=== PATIENT | male | born 1985 | race Caucasian/White ===

== ENCOUNTER 2017-02-23 18:25 | Emergency (ER) | payer OTHER ==
[2017-02-23 18:41] VITALS: BP 134/74
[2017-02-23] MEDS ORDERED: Lidocaine 2% Viscous Solution 15 ML Cup PO ONE (18:45)
[2017-02-23] MEDS ORDERED: Benzocaine 20% Topical Spray UD MUCMEM ONE (18:45)
--- NOTE | 2017-02-23 18:49 | EDM.PDOC ---
ED HPI GENERAL MEDICAL PROBLEM - General Chief Complaint: General Stated Complaint: TOOTH PAIN Time Seen by Provider: 02/23/17 18:45 Source of Information: Reports: Patient History Limitations: Reports: No Limitations - History of Present Illness INITIAL COMMENTS - FREE TEXT/NARRATIVE: HISTORY AND PHYSICAL: []31-year-old male with male presents with pain to his tooth History of Present Illness: [] 1-1/2 days patient has had pain to tooth #32. He has used a whole tube of over the counter Orajel without relief Review of Systems: As per history of present illness and below otherwise all systems reviewed and negative. Past medical history: As per history of present illness and as reviewed below otherwise noncontributory. Surgical history: As per history of present illness and as reviewed below otherwise noncontributory. Social history: No reported history of drug or alcohol abuse. Family history: As per history of present illness and as reviewed below otherwise noncontributory. Physical exam: Alert and oriented male looks to be mildly uncomfortable. answers questions in full sentences. No shortness of breath HEENT: Atraumatic, normocehpalic, pupils reactive, negative for conjunctival pallor or scleral icterus, mucous membranes moist, throat clear, neck supple, nontender, trachea midline. Gumline around tooth #32 is erythematous small portion of the tooth is visible. Lungs: Clear to auscultation, chest non tender. Heart: S1S2, regular, Abdomen: Soft, nondistended, nontender. Pelvis: Deferred Genitourinary: Deferred. Rectal: Deferred Extremities: Atraumatic, negative for cords or calf pain. Neurovascular unremarkable. Neuro: Awake, alert, oriented. Cranial nerves II through XII unremarkable. Cerebellum unremarkable. Motor and sensory unremarkable throughout. Exam nonfocal. Diagnostics: [] Therapeutics: [Dental balls] Impression: [Holden tooth erupting] Plan: [Home Dental balls as prescribed Follow-up with your personal dentist] Definitive disposition and diagnosis as appropriate pending reevaluation and review of above. Onset: Sudden Duration: Day(s): (1.5) Right Oral/Mouth Pain Score (Numeric/FACES): 5 - Related Data Allergies Allergy/AdvReac Type Severity Reaction Status Date / Time No Known Allergies Allergy Verified 02/23/17 18:42 Home Meds: Home Meds . [No Known Home Meds] 02/23/17 [History] Past Medical History HEENT History: Reports: None Cardiovascular History: Reports: None Respiratory History: Reports: None Gastrointestinal History: Reports: None Genitourinary History: Reports: None Neurological History: Reports: None Psychiatric History: Reports: None Endocrine/Metabolic History: Reports: None Hematologic History: Reports: None Immunologic History: Reports: None Oncologic (Cancer) History: Reports: None Dermatologic History: Reports: None - Past Surgical History Head Surgeries/Procedures: Reports: None HEENT Surgical History: Reports: None Cardiovascular Surgical History: Reports: None Respiratory Surgical History: Reports: None GI Surgical History: Reports: None Male Surgical History: Reports: None Musculoskeletal Surgical History: Reports: Arthroscopic Procedure, Shoulder Surgery Oncologic Surgical History: Reports: None ED ROS GENERAL - Review of Systems Review Of Systems: ROS reveals no pertinent complaints other than HPI. ED EXAM, GENERAL - Physical Exam Exam: See Below (see dictation) Course - Vital Signs Last Recorded V/S: Last Vital Signs Temp 36.4 C 02/23/17 18:40 Pulse 80 02/23/17 18:40 Resp 16 02/23/17 18:40 BP 134/74 02/23/17 18:40 Pulse Ox 98 02/23/17 18:40 Departure - Departure Time of Disposition: 18:48 Disposition: Home, Self-Care 01 Condition: Good Clinical Impression: Tooth pain - Discharge Information Forms: ED Department Discharge Additional Instructions: The following information is given to patients seen in the emergency department who are being discharged to home. This information is to outline your options for follow-up care. We provide all patients seen in our emergency department with a follow-up referral. The need for follow-up, as well as the timing and circumstances, are variable depending upon the specifics of your emergency department visit. If you don't have a primary care physician on staff, we will provide you with a referral. We always advise you to contact your personal physician following an emergency department visit to inform them of the circumstance of the visit and for follow-up with them and/or the need for any referrals to a consulting specialist. The emergency department will also refer you to a specialist when appropriate. This referral assures that you have the opportunity for followup care with a specialist. All of these measure are taken in an effort to provide you with optimal care, which includes your followup. Under all circumstances we always encourage you to contact your private physician who remains a resource for coordinating your care. When calling for followup care, please make the office aware that this follow-up is from your recent emergency room visit. If for any reason you are refused follow-up, please contact the [facility] emergency department at and asked to speak to the emergency department charge nurse.
== END 2017-02-23 19:04 | disposition home or self-care (01) ==
LOC: MW.ED 18:25
DX: K08.89 Other specified disorders of teeth and supporting structures (principal); Z98.890 Other specified postprocedural states
CPT/HCPCS: 99282; A9270

== ENCOUNTER 2021-02-17 03:14 | Emergency (ER) | payer OTHER ==
--- NOTE | 2021-02-17 03:30 | EDM.PDOC ---
ED HPI GENERAL MEDICAL PROBLEM - General Chief Complaint: General Stated Complaint: MEDICAL CLEARANCE Time Seen by Provider: 02/17/21 03:17 Source of Information: Reports: Patient History Limitations: Reports: No Limitations - History of Present Illness INITIAL COMMENTS - FREE TEXT/NARRATIVE: Patient is a 35-year-old male who presents for medical clearance. Patient was pulled over by police and brought in for medical clearance. Patient states he has no medical complaints does not want to be seen. - Related Data Allergies Allergy/AdvReac Type Severity Reaction Status Date / Time No Known Allergies Allergy Verified 02/23/17 18:42 Home Meds: Home Meds . [No Known Home Meds] 02/23/17 [History] Past Medical History HEENT History: Reports: None Cardiovascular History: Reports: None Respiratory History: Reports: None Gastrointestinal History: Reports: None Genitourinary History: Reports: None Neurological History: Reports: None Psychiatric History: Reports: None Endocrine/Metabolic History: Reports: None Hematologic History: Reports: None Immunologic History: Reports: None Oncologic (Cancer) History: Reports: None Dermatologic History: Reports: None - Past Surgical History Head Surgeries/Procedures: Reports: None HEENT Surgical History: Reports: None Cardiovascular Surgical History: Reports: None Respiratory Surgical History: Reports: None GI Surgical History: Reports: None Male Surgical History: Reports: None Musculoskeletal Surgical History: Reports: Arthroscopic Procedure, Shoulder Surgery Oncologic Surgical History: Reports: None Social & Family History - Caffeine Use Caffeine Use: Reports: None ED ROS GENERAL - Review of Systems Review Of Systems: See Below Constitutional: Reports: No Symptoms HEENT: Reports: No Symptoms Respiratory: Reports: No Symptoms Cardiovascular: Reports: No Symptoms Endocrine: Reports: No Symptoms GI/Abdominal: Reports: No Symptoms : Reports: No Symptoms Musculoskeletal: Reports: No Symptoms Skin: Reports: No Symptoms Neurological: Reports: No Symptoms Psychiatric: Reports: No Symptoms Hematologic/Lymphatic: Reports: No Symptoms Immunologic: Reports: No Symptoms ED EXAM, GENERAL - Physical Exam Exam: See Below Exam Limited By: No Limitations General Appearance: Alert, WD/WN, No Apparent Distress Respiratory/Chest: No Respiratory Distress, Lungs Clear, Normal Breath Sounds Cardiovascular: Normal Peripheral Pulses, Regular Rate, Rhythm GI/Abdominal: Normal Bowel Sounds Extremities: Normal Inspection, Normal Range of Motion Neurological: Alert, Oriented, Normal Cognition, Normal Gait Departure - Departure Time of Disposition: 03:29 Disposition: Home, Self-Care 01 Condition: Good Clinical Impression: Medical clearance for incarceration - Discharge Information *PRESCRIPTION DRUG MONITORING PROGRAM REVIEWED*: Not Applicable *COPY OF PRESCRIPTION DRUG MONITORING REPORT IN PATIENT NA: Not Applicable Instructions: Medical Screening Exam Referrals: PCP,None [Primary Care Provider] - Additional Instructions: The following information is given to patients seen in the emergency department who are being discharged to home. This information is to outline your options for follow-up care. We provide all patients seen in our emergency department with a follow-up referral. The need for follow-up, as well as the timing and circumstances, are variable depending upon the specifics of your emergency department visit. If you don't have a primary care physician on staff, we will provide you with a referral. We always advise you to contact your personal physician following an emergency department visit to inform them of the circumstance of the visit and for follow-up with them and/or the need for any referrals to a consulting specialist. The emergency department will also refer you to a specialist when appropriate. This referral assures that you have the opportunity for follow-up care with a specialist. All of these measure are taken in an effort to provide you with optimal care, which includes your follow-up. Under all circumstances we always encourage you to contact your private physician who remains a resource for coordinating your care. When calling for follow-up care, please make the office aware that this follow-up is from your recent emergency room visit. If for any reason you are refused follow-up, please contact the [facility] Emergency Department at and asked to speak to the emergency department charge nurse. Please follow up with your primary care physician. If you do not have a primary care physician, see below: [facility] [address] [place] [id number] My [facility] [address] [place] [id number] He was seen today for medical clearance you did not have any complaints if you have any complaints please follow your primary care physician or return to the ED. - Assessment/Plan Plan: Is a 35-year-old male brought in today for medical clearance. Patient has no complaints does not want be seen. Patient will be reviewed and discharged home.
== END 2021-02-17 03:41 | disposition home or self-care (01) ==
LOC: MW.ED 03:14
DX: Z02.89 Encounter for other administrative examinations (principal)
CPT/HCPCS: 99282; 99283

== ENCOUNTER 2022-01-10 16:33 | Emergency (ER) | payer OTHER ==
[2022-01-10] MEDS ORDERED: Sodium Chloride 0.9% 2.5 ML Syringe FLUSH PRN (16:42)
[2022-01-10] MEDS ORDERED: Sodium Chloride 0.9% 10 ML Syringe FLUSH PRN (16:42)
[2022-01-10] MEDS ORDERED: Ketorolac 30 MG/ML SDV IVPUSH ONE (17:06)
[2022-01-10] MEDS ORDERED: Ondansetron 4 MG/2 ML SDV IVPUSH ONE (17:06)
[2022-01-10] MEDS ORDERED: Sodium Chloride 0.9% 1,000 ML IV ONE (17:06)
[2022-01-10 17:13] LABS: BLOOD UREA NITROGEN,BUN 14 mg/dL (7.0-18.0); CHLORIDE,CL 104 mmol/L (98-107); GLUCOSE RANDOM 93 mg/dL (74-106); LIPASE 73 U/L (73-393); POTASSIUM,K 3.6 mmol/L (3.5-5.1); SODIUM,NA 141 mmol/L (136-148)
[2022-01-10 17:14] LABS: ESTIMATED GFR 90 mL/min (>60)
[2022-01-10] MEDS ORDERED: Alum Hydro/Mag Hydro/Simeth XS 15 ML, Lidocaine 2% 5 ML PO ONE ×2 (17:18)
[2022-01-10] MEDS ORDERED: Pantoprazole 40 MG in Sodium Chloride 0.9% 10 ML IVPUSH ONE (17:18)
[2022-01-10] MEDS ORDERED: Iopamidol 755 MG/ML 500 ML Multipack Bottle IVPUSH STA (17:41)
[2022-01-10] MEDS ORDERED: Orphenadrine 60 MG/2 ML Inj IM ONE (18:39)
[2022-01-10 19:11] VITALS: BP 119/71; PULSE 81
== END 2022-01-10 19:09 | disposition home or self-care (01) ==
LOC: MW.ED 16:33
DX: K29.00 Acute gastritis without bleeding (principal); M54.50 Low back pain, unspecified; Z79.899 Other long term (current) drug therapy
CPT/HCPCS: 36415; 71045; 74177; 80053; 81001; 83690; 83735; 84484; 85025; 85379; 85610; 93005; 96361; 96372; 96374; 96375; 99284; A9270; C9113; J1885; J2360; J2405; J3490; J7030; Q9967

== ENCOUNTER 2024-12-13 22:51 | Emergency (ER) | payer BC, OTHER ==
[2024-12-13] MEDS ORDERED: Sodium Chloride 0.9% 10 ML Syringe FLUSH PRN (22:58)
[2024-12-13] MEDS ORDERED: Sodium Chloride 0.9% 2.5 ML Syringe FLUSH PRN (22:58)
[2024-12-13 23:11] LABS: BASOPHILS ABSOLUTE AUTO 0.08 K/uL (0.00-0.20); BASOPHILS PERCENT AUTO 0.8 % (0.0-1.0); EOSINOPHILS ABSOLUTE AUTO 0.24 K/uL (0.00-0.45); EOSINOPHILS PERCENT AUTO 2.5 % (0.0-6.0); HEMATOCRIT 44.3 % (42.0-52.0); IMMATURE GRAN ABSOLUTE AUTO 0.01 K/uL (0.00-0.05); IMMATURE GRAN PERCENT AUTO 0.1 % (0.0-0.4); LYMPHOCYTES ABSOLUTE AUTO 2.38 K/uL (1.00-4.80); LYMPHOCYTES PERCENT AUTO 24.7 % (24.0-44.0); MEAN CORPUSCULAR HEMOGLOBIN 32.3 pg (28.0-32.0); MEAN CORPUSCULAR HGB CONC 33.9 g/dL (32.0-36.0); MEAN CORPUSCULAR VOLUME 95.5 fL (83.0-99.0); MEAN PLATELET VOLUME 10.5 fL (9.4-12.4); MONOCYTES ABSOLUTE AUTO 0.64 K/uL (0.00-0.80); MONOCYTES PERCENT AUTO 6.7 % (0.0-8.0); NEUTROPHILS ABSOLUTE AUTO 6.27 K/uL (1.80-7.70); NEUTROPHILS PERCENT AUTO 65.2 % (41.0-71.0); PLATELET COUNT,PLT 196 K/uL (150-400); RED BLOOD CELL COUNT 4.64 M/uL (4.52-5.90); WHITE BLOOD CELL COUNT,WBC 9.62 K/uL (3.9-11.3)
[2024-12-13 23:13] VITALS: BP 103/69; PULSE 81
[2024-12-13] MEDS: Morphine 4 MG/ML Syringe IVPUSH ONE ×2 (23:13→23:39)
[2024-12-13] MEDS: Diphtheria,Pertussis(Acell),Tetanus Vaccine 0.5 ML Syringe IM ONE (23:14)
[2024-12-13] MEDS: Sodium Chloride 0.9% 1,000 ML IV ONE (23:15)
[2024-12-13] MEDS: ceFAZolin 1 GM in Water For Injection, Sterile 10 ML IVPUSH ONE (23:15)
[2024-12-13 23:27] LABS: CALCIUM 8.8 mg/dL (8.5-10.1); CARBON DIOXIDE,CO2 28.3 mmol/L (21.0-32.0); CREATININE 1.1 mg/dL (0.8-1.3); EST CRCL DRUG DOSING (CG) 99.94 mL/min; POTASSIUM,K 3.3 mmol/L (3.5-5.1)
== END 2024-12-14 00:21 ==
LOC: MW.ED 22:51
DX: S82.201C Unspecified fracture of shaft of right tibia, initial encounter for open fracture type IIIA, IIIB, or IIIC (principal); Z23 Encounter for immunization; Z79.899 Other long term (current) drug therapy; W22.8XXA Striking against or struck by other objects, initial encounter
CPT/HCPCS: 29515; 36415; 73590; 73600; 80048; 85025; 90471; 90715; 96374; 96375; 99285; J0690; J2270; J7030; 99284